=== PATIENT | female | born 1965 | race Hispanic/Latino ===

== ENCOUNTER 2019-03-01 19:37 | Emergency (ER) | payer OTHER ==
[~2019-03-01] VITALS: Ht 162.6 cm; Wt 77.1 kg
[~2019-03-01 19:37] MED LIST: CELEXA10 MG PO; ESTROGEL TD; OMEP40CA PO
[2019-03-01 21:51] VITALS: BP 128/99; TEMP 97.2
== END 2019-03-01 21:52 | disposition home or self-care (01) ==
LOC: ED 19:37
PROC: 0HQKXZZ Repair Right Lower Leg Skin, External Approach (ICD-10-PCS; principal; 2019-03-01)
PROC: 2W3LX1Z Immobilization of Right Lower Extremity using Splint (ICD-10-PCS; 2019-03-01)
DX: S81.011A Laceration without foreign body, right knee, initial encounter (principal); S50.01XA Contusion of right elbow, initial encounter; W01.198A Fall on same level from slipping, tripping and stumbling with subsequent striking against other object, initial encounter; Y92.89 Other specified places as the place of occurrence of the external cause
CPT/HCPCS: 90471; 90715; 99283

== ENCOUNTER 2021-08-24 10:03 | Outpatient (CLI) | payer OTHER | END 2021-08-24 18:47 | disposition home or self-care (01) | LOC: RAD 10:03 | PROVIDERS: ATTEND Nurse Practitioner Family | DX: U07.1 COVID-19 (principal) ==

== ENCOUNTER 2022-10-19 09:48 | Outpatient (CLI) | payer OTHER | END 2022-10-19 20:54 | disposition home or self-care (01) | LOC: RAD 09:48 | PROVIDERS: ATTEND Internal Medicine | DX: Z13.820 Encounter for screening for osteoporosis (principal) ==

== ENCOUNTER 2023-03-20 14:43 | Outpatient (CLI) | payer OTHER | END 2023-03-20 20:54 | disposition home or self-care (01) | LOC: US 14:43 | PROVIDERS: ATTEND Internal Medicine | DX: R22.43 Localized swelling, mass and lump, lower limb, bilateral (principal) ==

== ENCOUNTER 2023-04-03 15:26 | Outpatient (CLI) | payer OTHER | END 2023-04-03 22:08 | disposition home or self-care (01) | LOC: RAD 15:26 | PROVIDERS: ATTEND Internal Medicine | DX: M54.59 Other low back pain (principal) ==